=== PATIENT | female | born 1990 | race Caucasian/White ===

== ENCOUNTER 2016-06-07 20:27 | Emergency (ER) | payer OTHER ==
[~2016-06-07 20:27] MED LIST: COLACE PO; HYDROCODON-ACE1 EAC7 PO; ZITHROMAX PO
== END 2016-06-07 20:46 | disposition left against medical advice (07) ==
LOC: CED 20:27
DX: Z53.21 Procedure and treatment not carried out due to patient leaving prior to being seen by health care provider (principal)